=== PATIENT | male | born 1970 | race Caucasian/White ===

== ENCOUNTER 2023-09-21 08:04 | Outpatient (AMB) | payer OTHER, SELFPAY ==
[2023-09-21 08:10] VITALS: BP 134/74; PULSE 85; TEMP 37.2; O2SAT 95; BMI 45.0
--- NOTE | 2023-09-21 08:10 | AM.OFFWIN_ITS ---
Intake Vital Signs 09/21/23 08:10 Height 5 ft 10 in Weight 314 lb BMI 45.0 BP 134/74 Blood Pressure Location Lt brachial Position Sitting Pulse 85 Pulse Source Pulse Oximeter Temp 99.0 F Temp Source Oral Pulse Oximetry (%) 95 Oxygen Delivery Method Room Air Intake Visit Reasons: [employer] Sore throat, body aches, headaches Intake Note: pt is here for c.o sore throat, body aches, headaches since yesterday Patient Tobacco Use Status: Never used Tobacco Allergies No Known Allergies Allergy (Verified 09/21/23 08:27) Medication List - Last Reconciled 09/21/23 by HE Obando buprenorphine-naloxone 8-2 mg film sublingual clotrimazole-betamethasone 1-0.05 % appl topical BID escitalopram oxalate 20 mg PO DAILY gemfibrozil 600 mg PO BID glipizide 5 mg PO BID metformin 1,000 mg PO BID Do you need a note to return to daycare/school/sports/work: Yes HPI HPI Comments History of Present Illness Details 53-year-old man in for a sick visit. Jeremy walker states the past 2 days he developed symptoms of headache, sore throat, cough, congestion. He states he is bringing up large amounts of mucus. Denies any sick contacts. Has used [id number] Motrin with some relief. Patient will be swabbed upper respiratory and strep. Denies chest pain, shortness a breath, dizziness, nausea, numbness, vomiting, diarrhea. [facility] Medical History Diabetes type 2, controlled Social History Patient Tobacco Use Status: Never used Tobacco Review of Systems Const Details: Constitutional : No Weight loss, No Fever, No Chills, No Fatigue, No Malaise ENT/Mouth : Admits sore throat, No Rhinorrhea Eyes: No Eye Pain, No Swelling, No Redness Cardiovascular : No Chest Pain, No SOB, No Dyspnea on Exertion, No Orthopnea, No Edema, No Palpitations Respiratory : Admits Cough, Admits Sputum, No Wheezing Gastrointestinal : No Nausea, No Vomiting, No Diarrhea, No Constipation, No abdominal Pain, No Hematochezia, No Melena Genitourinary : No Dysuria, No Urinary Frequency, No Hematuria, Musculoskeletal : No joint pain, No Myalgias, No Joint Swelling Skin : No Skin Lesions, No rash Neuro : No Weakness, No Numbness, No Dizziness, Admits Headache Psych : No Anxiety/Panic, No Depression Heme/Lymph: No Bruising, No Bleeding,No Lymphadenopathy Endocrine : No Polyuria, No Polydipsia All other systems reviewed and are negative Physical Exam Vital Signs: BMI result Body Mass Index 45.0 Vital signs reviewed stable Const Other: Appearance: Alert.? Oriented X3.? No acute distress.? Head: Normocephalic, atraumatic, Eyes: Pupils equal, round and reactive to light.? ENT: Pharynx erythema, no exudate. TM intact and pearly cruz. ? Neck: Normal inspection.? Neck supple.?Full ROM CVS: Normal heart rate and rhythm.? Pulses normal.? Respiratory: No respiratory distress.? Breath sounds normal.? Neuro: Oriented X 3.? No motor deficit.? No sensory deficit. CN 2-12 intact Results AMB Rapid Strep AMB Rapid Strep Negative Last Edit by Raymond Mcqueen CMA on 09/21/23 08 :28 Assessment & Plan Assessment & Plan (1) Upper respiratory infection: Comment: For call patient with swab results. Patient was negative for strep in office. Will be given benzonatate a Walden, prednisone, cepacol throat spray to be taken as directed. Patient has been educated on signs of worsening symptoms and when to return to the walk-in or when to present to the ED. Code(s): J06.9 - Acute upper respiratory infection, unspecified Qualifiers: URI type: unspecified URI Qualified Code(s): J06.9 - Acute upper respiratory infection, unspecified Plan: Take your medications as prescribed. If you were prescribed antibiotics today, it is important that you take your medication to their entirety, do not skip any doses, do not finish them early. Follow-up with your primary care provider this week. Return to the emergency department with new or worsening symptoms. Such as fevers, chills, chest pain, shortness of breath, nausea, vomiting, dizziness, headache, vision changes, lethargy In case of emergency call 911 Plan Follow-up with PCP. Orders: Orders SARS-CoV2/FLU/RSV Today J06.9 - Acute upper respiratory infection, unspecified AMB Rapid Strep Screen Today Z13.9 - Encounter for screening, unspecified Medications: New benzonatate 100 mg PO BID PRN 20 caps 0RF cough prednisone 20 mg PO BID 10 tabs 0RF benzocaine-menthol 15-2.6 mg (Cepacol Sore Throat (benzocaine-menthol)) 1 cash mucous membrane Q2-4H PRN 16 ea 0RF pain Coding Level of Care Code New Pt Level 4 (37204) Diagnoses Upper respiratory tract infection, unspecified type J06.9 URI type: unspecified URI Time Spent (min) 22
== END 2023-09-21 08:41 | disposition home or self-care (01) ==
PROVIDERS: PCP Internal Medicine; Visit Provider Nurse Practitioner Primary Care
DX: J02.9 Acute pharyngitis, unspecified (principal)
CPT/HCPCS: 87880; 99204

== ENCOUNTER 2023-09-21 08:27 | Outpatient (REF) | payer OTHER, SELFPAY ==
[2023-09-21 12:42] LABS: Influenza A PCR POSITIVE (Negative); Influenza B PCR NEGATIVE (Negative); Resp Syncy Virus RNA Qual PCR NEGATIVE (Negative); SARS COV2 PCR INHOUSE NEGATIVE (Negative)
== END 2023-09-21 08:28 | disposition home or self-care (01) ==
LOC: HO.LAB 08:27
PROVIDERS: Visit Provider Nurse Practitioner Primary Care
DX: Z11.52 Encounter for screening for COVID-19 (principal); J06.9 Acute upper respiratory infection, unspecified
CPT/HCPCS: 0241U

== ENCOUNTER 2024-02-22 10:24 | Outpatient (AMB) | payer OTHER, SELFPAY ==
[2024-02-22 10:30] VITALS: BP 122/74; PULSE 80; TEMP 37.2; O2SAT 97; BMI 44.9
--- NOTE | 2024-02-22 10:30 | MHC.OFFWIV ---
Intake Vital Signs 02/22/24 10:30 Height 5 ft 10 in Weight 313 lb BMI 44.9 BP 122/74 Blood Pressure Location Rt brachial Position Sitting Pulse 80 Pulse Source Pulse Oximeter Temp 98.9 F Temp Source Oral Pulse Oximetry (%) 97 Oxygen Delivery Method Room Air Intake Visit Reasons: irritated tonsils/ been using salt water to gargle Intake Note: pt is here for irritated tonsils Patient Tobacco Use Status: Never used Tobacco Allergies No Known Allergies Allergy (Verified 02/22/24 10:30) Do you need a note to return to daycare/school/sports/work: No HPI HPI Comments History of Present Illness Details Patient is a 53-year-old male complaining of sore throat and pain with swallowing and inflamed tonsils x3 days. He states he has been gargling with hydrogen peroxide and warm salt water for a few days which gives him some temporary relief. He states he usually gets strep throat once a year. He denies any cough or fevers, head congestion, chest congestion, shortness of breath or trouble breathing. [facility] Medical History Diabetes type 2, controlled Social History Patient Tobacco Use Status: Never used Tobacco Review of Systems Const All systems reviewed & are unremarkable except as noted in HPI and below Physical Exam Vital Signs: Last Vital Signs Temp 98.9 F 02/22/24 10:30 Pulse 80 02/22/24 10:30 BP 122/74 02/22/24 10:30 Pulse Ox 97 02/22/24 10:30 Oxygen Delivery Method Room Air 02/22/24 10:30 BMI result Body Mass Index 44.9 Const General: cooperative, healthy appearing, comfortable and no acute distress Orientation/consciousness: patient oriented x3 Limitations: no limitations HEENT Other: moving air well Head: Yes normal to inspection Ears: hearing grossly normal bilaterally, external ears normal and TM's normal bilaterally General nose exam: Normal external nose present, Normal nares present and No nasal discharge present Face and sinus: Yes normal facial exam Mouth: Normal oral and palatal mucosa present and moist mucous membranes Throat: Yes uvula midline (swollen and erythematous), Yes abnormal tonsil (Erythematous) and Yes posterior oropharynx abnormal (Erythema, exudates present) Eyes General: appearance normal, both eyes and all related structures Neck Other: Tender and swollen anterior cervical lymph nodes, bilaterally Neck: Yes normal visual inspection Resp Effort & Inspection: normal respiratory effort, able to speak in complete sentences, no audible wheezes and no respiratory distress Skin General skin exam: no rashes or lesions noted Neuro General: patient oriented x3 Extrem General: Yes normal to inspection and Yes no clubbing, cyanosis or edema Assessment & Plan Assessment & Plan (1) Strep pharyngitis: Code(s): J02.0 - Streptococcal pharyngitis Plan: Center criteria 2, treated for strep despite negative rapid with exudates and swelling of tonsils and tender anterior cervical lymph nodes. Plan See above Medications: New amoxicillin 500 mg PO BID 20 tabs 0RF Coding Level of Care Code New Pt Level 3 (86701) Diagnoses Strep pharyngitis J02.0
== END 2024-02-22 11:12 | disposition home or self-care (01) ==
PROVIDERS: PCP Internal Medicine; Visit Provider Physician Assistant
DX: J02.0 Streptococcal pharyngitis (principal)
CPT/HCPCS: 87880; 99203